=== PATIENT | male | born 1995 | race Caucasian/White ===

== ENCOUNTER 2017-09-07 17:25 | Emergency (ER) | payer OTHER ==
[~2017-09-07] VITALS: Ht 180.3 cm; Wt 68.5 kg
[2017-09-07 17:30] VITALS: Ht 180.3 cm; Wt 68.5 kg
[2017-09-07 19:28] VITALS: BP 123/60
== END 2017-09-07 19:28 | disposition home or self-care (01) ==
LOC: ED 17:25
DX: R06.02 Shortness of breath (principal); J45.909 Unspecified asthma, uncomplicated; Z88.0 Allergy status to penicillin; Z88.8 Allergy status to other drugs, medicaments and biological substances
CPT/HCPCS: J7512

== ENCOUNTER 2017-10-21 13:02 | Emergency (ER) | payer OTHER ==
[~2017-10-21] VITALS: Ht 180.3 cm; Wt 71.7 kg
[2017-10-21 13:12] VITALS: Ht 180.3 cm; Wt 71.7 kg
[2017-10-21 14:28] VITALS: BP 127/60
== END 2017-10-21 14:28 | disposition home or self-care (01) ==
LOC: ED 13:02
DX: K60.0 Acute anal fissure (principal); J45.909 Unspecified asthma, uncomplicated; Z88.0 Allergy status to penicillin; Z88.6 Allergy status to analgesic agent